=== PATIENT | female | born 1955 | race Caucasian/White ===

== ENCOUNTER → 2018-02-20 | Outpatient (CLI) | payer BC | LOC: OD 09:54 | PROVIDERS: ATTEND Internal Medicine Nephrology | DX: E87.5 Hyperkalemia (principal) | CPT/HCPCS: 36415; 84132 ==

== ENCOUNTER → 2018-05-30 | Outpatient (CLI) | payer BC ==
[2018-05-30 11:55] LABS: ABSOLUTE EOSINOPHILS # (AUTO) 0.1 10^3/uL (0.0-0.6); ABSOLUTE LYMPHOCYTES (AUTO) 1.7 10^3/uL (0.5-4.7); ABSOLUTE MONOCYTES (AUTO) 0.4 10^3/uL (0.1-1.4); BASOPHILS % (AUTO) 0.6 % (0-2); EOSINOPHILS % (AUTO) 1.9 % (0-6); HEMOGLOBIN 10.4 g/dL (12.0-15.5); LYMPHOCYTES % (AUTO) 26.7 % (13-45); MEAN CORPUSCULAR HEMOGLOBIN 32.4 pg (27.0-33.4); MEAN CORPUSCULAR HGB CONC 34.8 g/dL (32.0-36.0); MEAN CORPUSCULAR VOLUME 93 fl (80-97); MONOCYTES % (AUTO) 6.7 % (3-13); PLATELET COUNT 205 10^3/uL (150-450); RED BLOOD COUNT 3.22 10^6/uL (3.72-5.28); RED CELL DISTRIBUTION WIDTH 11.4 % (11.5-14.0); SEGMENTED NEUTROPHILS % (AUTO) 64.1 % (42-78); TOTAL CELLS COUNTED % (AUTO) 100 %; WHITE BLOOD COUNT 6.2 10^3/uL (4.0-10.5)
[2018-05-30 12:02] LABS: APPEARANCE,URINE CLEAR; BILIRUBIN,URINE NEGATIVE (NEGATIVE); COLOR,URINE YELLOW; GLUCOSE, URINE NEGATIVE (NEGATIVE); KETONES,URINE NEGATIVE (NEGATIVE); LEUKOCYTE ESTERASE,URINE MODERATE (NEGATIVE); NITRITE,URINE NEGATIVE (NEGATIVE); PROTEIN,URINE NEGATIVE (NEGATIVE); URINE SPECIFIC GRAVITY 1.008; UROBILINOGEN,URINE NEGATIVE mg/dL (<2.0)
[2018-05-30 12:14] LABS: PHOSPHORUS 4.6 mg/dL (2.5-4.5)
[2018-05-31 11:39] LABS: CREATININE URINE 40.5 mg/dL (Not Estab.); MICROALBUMIN URINE 6.1 ug/mL (Not Estab.)
== END ==
LOC: OD 11:22
PROVIDERS: ATTEND Internal Medicine Nephrology
DX: N18.3 Chronic kidney disease, stage 3 (moderate) (principal); I12.9 Hypertensive chronic kidney disease with stage 1 through stage 4 chronic kidney disease, or unspecified chronic kidney disease; D64.9 Anemia, unspecified
CPT/HCPCS: 36415; 81001; 82040; 82043; 82306; 82570; 82728; 83540; 83550; 83970; 84100; 85025

== ENCOUNTER → 2018-06-08 | Outpatient (CLI) | payer BC ==
[2018-06-08 13:41] LABS: ANION GAP 10 (5-19); BLOOD UREA NITROGEN 23 mg/dL (7-20); CALCIUM 8.2 mg/dL (8.4-10.2); CARBON DIOXIDE 24 mmol/L (22-30); CHLORIDE 104 mmol/L (98-107); GLUCOSE 90 mg/dL (75-110); SODIUM 137.7 mmol/L (137-145)
== END ==
LOC: OD 12:39
PROVIDERS: ATTEND Internal Medicine Nephrology
DX: N18.3 Chronic kidney disease, stage 3 (moderate) (principal); D63.1 Anemia in chronic kidney disease
CPT/HCPCS: 36415; 80048

== ENCOUNTER 2018-06-16 20:38 | Emergency (ER) | payer BC ==
[2018-06-16] MEDS ORDERED: ACETAMINOPHEN 325 MG TABLET PO ONE (21:02)
--- NOTE | 2018-06-16 21:20 | ER Document Report ---
ED General - General Chief Complaint: General Weakness Stated Complaint: WEAKNESS Time Seen by Provider: 06/16/18 21:00 Mode of Arrival: Ambulatory Information source: Patient Notes: 62-year-old female with hypertension, hyperlipidemia, stage III renal disease, recurring cellulitis, chronic knee pain on buprenorphine presents via EMS with complaint of generalized weakness. Patient states that she was shopping when she developed chills and has had weakness since that time. Patient denies fever, headache, nausea, vomiting, chest pain, cough, abdominal pain, nausea, vomiting, diarrhea. is at the bedside and states that he noticed an area of redness on the patient's inner thigh. States that she has had recurring cellulitis. TRAVEL OUTSIDE OF THE [place] IN LAST 30 DAYS: No - HPI Onset: Just prior to arrival Onset/Duration: Gradual Quality of pain: Throbbing - Patient has chronic knee pain Associated symptoms: Chills, Weakness. denies: Body/muscle aches, Chest pain, Nonproductive cough, Productive cough, Diarrhea, Fever, Headache, Nausea, Vomiting, Shortness of breath Exacerbated by: Denies Relieved by: Denies Similar symptoms previously: Yes Recently seen / treated by doctor: No - Related Data Allergies/Adverse Reactions: Iodinated Contrast- Oral and IV Dye [IV Dye, Iodine Containing] Allergy (Unknown, Verified 05/21/14 09:10) breathing problems clarithromycin [From Biaxin] Adverse Reaction (Unknown, Verified 05/21/14 09:10) vaginal itching Past Medical History - General Information source: Patient - Social History Smoking Status: Former Smoker Chew tobacco use (# tins/day): No Frequency of alcohol use: None Drug Abuse: None Lives with: Spouse/Significant other Family History: Reviewed & Not Pertinent Patient has suicidal ideation: No Patient has homicidal ideation: No - Past Medical History Cardiac Medical History: Reports: Hx Hypercholesterolemia, Hx Hypertension Renal/ Medical History: Denies: Hx Peritoneal Dialysis Musculoskeletal Medical History: Reports Hx Arthritis Past Surgical History: Reports: Hx Abdominal Surgery - gastric bypass, Hx Appendectomy, Hx Section - Immunizations Hx Diphtheria, Pertussis, Tetanus Vaccination: Yes Hx Pneumococcal Vaccination: 05/21/14 Review of Systems - Review of Systems Notes: REVIEW OF SYSTEMS: CONSTITUTIONAL : Denies fever, or sweats. Denies recent illness. Denies weight loss, recent hospitalizations. EENT: Denies visual changes, eye pain. Denies sore throat, oral lesions, d ifficulty swallowing. CARDIOVASCULAR: Denies chest pain. Denies palpitations. Denies lower extremity edema. RESPIRATORY: Denies cough. Denies shortness of breath, wheezing. GASTROINTESTINAL: Denies abdominal pain or distention. Denies nausea, vomiting, or diarrhea. Denies blood in vomitus, stools, or per rectum. Denies black, tarry stools. Denies constipation. GENITOURINARY: Denies difficulty urinating, painful urination, frequency, blood in urine, or vaginal discharge. MUSCULOSKELETAL: Denies back or neck pain or stiffness. Denies joint pain or swelling. SKIN: Denies rash, lesions or sores. HEMATOLOGIC : Denies easy bruising or bleeding. LYMPHATIC: Denies swollen glands. NEUROLOGICAL: Denies confusion or altered mental status. Denies loss of consciousness. Denies dizziness or lightheadedness. Denies headache. Denies paralysis. Denies problems difficulty with ambulation, slurred speech. Denies sensory loss, numbness, or tingling. Denies seizures. PSYCHIATRIC: Denies anxiety or stress. Denies depression, suicidal ideation, or homicidal ideation. Denies visual or auditory hallucinations. Physical Exam - Vital signs Vitals: Temp Pulse Resp BP Pulse Ox 102.0 F H 100 22 H 104/50 L 91 L 06/16/18 20:42 06/16/18 20:42 06/16/18 20:42 06/16/18 20:42 06/16/18 20:42 - Notes Notes: PHYSICAL EXAMINATION: GENERAL: Well-appearing, well-nourished and in no acute distress. HEAD: Atraumatic, normocephalic. EYES: Pupils equal round and reactive to light, extraocular movements intact, conjunctiva are normal. ENT: Nares patent, oropharynx clear without exudates. Moist mucous membranes. NECK: Normal range of motion, supple without lymphadenopathy LUNGS: Breath sounds clear to auscultation bilaterally and equal. No wheezes rales or rhonchi. HEART: Regular rate and rhythm without murmurs ABDOMEN: Soft, nontender, nondistended abdomen. No guarding, no rebound. No masses appreciated. Female : deferred Musculoskeletal: Normal range of motion, no pitting or edema. No cyanosis. NEUROLOGICAL: Cranial nerves grossly intact. Normal speech, normal gait. Normal sensory, motor exams PSYCH: Normal mood, normal affect. SKIN: Warm, Dry, normal turgor, no rashes or lesions noted. Course - Re-evaluation Re-evalutation: Laboratory 06/16/18 06/16/18 06/16/18 21:00 21:00 21:00 WBC 15.6 H RBC 3.23 L Hgb 10.4 L Hct 30.2 L MCV 94 MCH 32.3 MCHC 34.5 RDW 11.8 Plt Count 132 L Seg Neutrophils % 88.9 H Lymphocytes % 5.2 L Monocytes % 5.7 Eosinophils % 0.1 Basophils % 0.1 Absolute Neutrophils 13.8 H Absolute Lymphocytes 0.8 Absolute Monocytes 0.9 Absolute Eosinophils 0.0 Absolute Basophils 0.0 PT 16.1 H INR 1.23 VBG pH VBG pCO2 VBG HCO3 VBG Base Excess Sodium 133.4 L Potassium 4.4 Chloride 103 Carbon Dioxide 23 Anion Gap 7 BUN 22 H Creatinine 1.54 H Est GFR ( Amer) 41 L Est GFR (Non-Af Amer) 34 L Glucose 105 Lactic Acid Calcium 8.0 L Total Bilirubin 0.6 Direct Bilirubin 0.2 Neonat Total Bilirubin Not Reportable Neonat Direct Bilirubin Not Reportable Neonat Indirect Bili Not Reportable AST 111 H ALT 64 H Alkaline Phosphatase 98 Troponin I Total Protein 6.6 Albumin 3.2 L Urine Color Urine Appearance Urine pH Ur Specific Butler Urine Protein Urine Glucose (UA) Urine Ketones Urine Blood Urine Nitrite Urine Bilirubin Urine Urobilinogen Ur Leukocyte Esterase Urine WBC (Auto) Urine RBC (Auto) U Hyaline Cast (Auto) Urine Bacteria (Auto) Urine WBC Clumps Squamous Epi Cells Auto Urine Mucus (Auto) Urine Ascorbic Acid Urine Opiates Screen Urine Methadone Screen Ur Barbiturates Screen Ur Phencyclidine Scrn Ur Amphetamines Screen U Benzodiazepines Scrn Urine Cocaine Screen U Marijuana (THC) Screen Influenza A (Rapid) Influenza B (Rapid) 06/16/18 06/16/18 06/16/18 21:00 21:00 21:00 WBC RBC Hgb Hct MCV MCH MCHC RDW Plt Count Seg Neutrophils % Lymphocytes % Monocytes % Eosinophils % Basophils % Absolute Neutrophils Absolute Lymphocytes Absolute Monocytes Absolute Eosinophils Absolute Basophils PT INR VBG pH 7.33 VBG pCO2 46.3 VBG HCO3 23.8 VBG Base Excess -2.6 Sodium Potassium Chloride Carbon Dioxide Anion Gap BUN Creatinine Est GFR ( Amer) Est GFR (Non-Af Amer) Glucose Lactic Acid 1.9 Calcium Total Bilirubin Direct Bilirubin Neonat Total Bilirubin Neonat Direct Bilirubin Neonat Indirect Bili AST ALT Alkaline Phosphatase Troponin I 0.838 Total Protein Albumin Urine Color Urine Appearance Urine pH Ur Specific Butler Urine Protein Urine Glucose (UA) Urine Ketones Urine Blood Urine Nitrite Urine Bilirubin Urine Urobilinogen Ur Leukocyte Esterase Urine WBC (Auto) Urine RBC (Auto) U Hyaline Cast (Auto) Urine Bacteria (Auto) Urine WBC Clumps Squamous Epi Cells Auto Urine Mucus (Auto) Urine Ascorbic Acid Urine Opiates Screen Urine Methadone Screen Ur Barbiturates Screen Ur Phencyclidine Scrn Ur Amphetamines Screen U Benzodiazepines Scrn Urine Cocaine Screen U Marijuana (THC) Screen Influenza A (Rapid) Influenza B (Rapid) 06/16/18 06/16/18 06/16/18 21:51 21:51 21:53 WBC RBC Hgb Hct MCV MCH MCHC RDW Plt Count Seg Neutrophils % Lymphocytes % Monocytes % Eosinophils % Basophils % Absolute Neutrophils Absolute Lymphocytes Absolute Monocytes Absolute Eosinophils Absolute Basophils PT INR VBG pH VBG pCO2 VBG HCO3 VBG Base Excess Sodium Potassium Chloride Carbon Dioxide Anion Gap BUN Creatinine Est GFR ( Amer) Est GFR (Non-Af Amer) Glucose Lactic Acid Calcium Total Bilirubin Direct Bilirubin Neonat Total Bilirubin Neonat Direct Bilirubin Neonat Indirect Bili AST ALT Alkaline Phosphatase Troponin I Total Protein Albumin Urine Color YELLOW Urine Appearance CLOUDY Urine pH 5.0 Ur Specific Butler 1.015 Urine Protein 100 H Urine Glucose (UA) NEGATIVE Urine Ketones NEGATIVE Urine Blood NEGATIVE Urine Nitrite NEGATIVE Urine Bilirubin NEGATIVE Urine Urobilinogen NEGATIVE Ur Leukocyte Esterase MODERATE H Urine WBC (Auto) 30 Urine RBC (Auto) 2 U Hyaline Cast (Auto) 2 Urine Bacteria (Auto) TRACE Urine WBC Clumps OCC Squamous Epi Cells Auto 2 Urine Mucus (Auto) RARE Urine Ascorbic Acid NEGATIVE Urine Opiates Screen UNCONFIRMED POSITIVE Urine Methadone Screen NEGATIVE Ur Barbiturates Screen NEGATIVE Ur Phencyclidine Scrn NEGATIVE Ur Amphetamines Screen NEGATIVE U Benzodiazepines Scrn NEGATIVE Urine Cocaine Screen NEGATIVE U Marijuana (THC) Screen NEGATIVE Influenza A (Rapid) NEGATIVE Influenza B (Rapid) NEGATIVE 06/16/18 23:25 WBC RBC Hgb Hct MCV MCH MCHC RDW Plt Count Seg Neutrophils % Lymphocytes % Monocytes % Eosinophils % Basophils % Absolute Neutrophils Absolute Lymphocytes Absolute Monocytes Absolute Eosinophils Absolute Basophils PT INR VBG pH VBG pCO2 VBG HCO3 VBG Base Excess Sodium Potassium Chloride Carbon Dioxide Anion Gap BUN Creatinine Est GFR ( Amer) Est GFR (Non-Af Amer) Glucose Lactic Acid Calcium Total Bilirubin Direct Bilirubin Neonat Total Bilirubin Neonat Direct Bilirubin Neonat Indirect Bili AST ALT Alkaline Phosphatase Troponin I 1.080 Total Protein Albumin Urine Color Urine Appearance Urine pH Ur Specific Butler Urine Protein Urine Glucose (UA) Urine Ketones Urine Blood Urine Nitrite Urine Bilirubin Urine Urobilinogen Ur Leukocyte Esterase Urine WBC (Auto) Urine RBC (Auto) U Hyaline Cast (Auto) Urine Bacteria (Auto) Urine WBC Clumps Squamous Epi Cells Auto Urine Mucus (Auto) Urine Ascorbic Acid Urine Opiates Screen Urine Methadone Screen Ur Barbiturates Screen Ur Phencyclidine Scrn Ur Amphetamines Screen U Benzodiazepines Scrn Urine Cocaine Screen U Marijuana (THC) Screen Influenza A (Rapid) Influenza B (Rapid) Chest X-Ray 06/16/18 21:02 IMPRESSION: Mild pulmonary edema. No pleural effusions. Chest CT 06/16/18 23:04 IMPRESSION: 1. Small areas of groundglass opacity in the right lung which may represent infection. 2. Age-indeterminate fracture of the right clavicle. 2. No acute intra-abdominal or pelvic pathology. Abdomen/Pelvis CT 06/16/18 23:22 IMPRESSION: 1. Small areas of groundglass opacity in the right lung which may represent infection. 2. Age-indeterminate fracture of the right clavicle. 2. No acute intra-abdominal or pelvic pathology. Temp Pulse Resp BP Pulse Ox 100.2 F 100 16 96/53 L 99 06/16/18 23:49 06/16/18 20:53 06/17/18 00:26 06/17/18 00:26 06/17/18 00:26 62-year-old female with hypertension, hyperlipidemia, stage III renal disease, recurring cellulitis, chronic knee pain on buprenorphine presents via EMS with complaint of generalized weakness. Patient states that she was shopping when she developed chills and has had weakness since that time. Upon arrival vitals were reviewed and patient is febrile, tachycardic and hypotensive. She is alert, awake and her only complaint is generalized weakness. She denies any c hest pain, nausea, vomiting, recent illness. Patient states that she did receive a flu shot. Patient has a normal physical exam except for some mild erythema to her lower extremities bilaterally which the family reports is chronic for her. Sepsis workup initiated. Patient found to have a leukocytosis of 15. CT of the abdomen and pelvis significant for right sided pneumonia. Urinalysis consistent with urinary tract infection. Fluid resuscitation initiated and patient did have mild improvement but continued to have a map less than 65. Norepinephrine initiated. Patient did receive vancomycin, ceftriaxone. Initial lactate within normal limits. Initial troponin was 0.083. Repeat troponin 1.08. Weight-based Lovenox given. Dr. Cai contacted for admission. 06/16/18 23:21 CT of the abdomen and pelvis was requested by Dr. Cai. Patient does have an iodine allergy and will not consent to IV contrast even with premedication with Benadryl, Solu-Medrol and Pepcid. So a noncontrast CT will be obtained. 06/16/18 23:23 06/17/18 00:29 Transfer to [facility] initiated. 06/17/18 00:31 [facility] contacted for transfer. 06/17/18 00:42 06/17/18 00:43 06/17/18 01:[address] Patient [address] by Dr. Lopes from [facility] but I was informed that the patient would not likely get a bed for almost [address] Cortez from [facility] who has accepted the patient to the MICU. The family does prefer [place] since the patient's director quality assurance and primary care physician are there. Transfer center checking weather. Family informed of change. 06/17/18 01:12 06/17/18 01:12 - Vital Signs Vital signs: Temp Pulse Resp BP Pulse Ox 100.2 F 100 16 96/53 L 99 06/16/18 23:49 06/16/18 20:53 06/17/18 00:45 06/17/18 00:45 06/17/18 00:45 - Laboratory Result Diagrams: 06/16/18 21:00 06/16/18 21:00 Laboratory results interpreted by me: 06/16/18 06/16/18 06/16/18 21:00 21:00 21:00 WBC 15.6 H RBC 3.23 L Hgb 10.4 L Hct 30.2 L Plt Count 132 L Seg Neutrophils % 88.9 H Lymphocytes % 5.2 L Absolute Neutrophils 13.8 H PT 16.1 H Sodium 133.4 L BUN 22 H Creatinine 1.54 H Est GFR ( Amer) 41 L Est GFR (Non-Af Amer) 34 L Calcium 8.0 L AST 111 H ALT 64 H Albumin 3.2 L Urine Protein Ur Leukocyte Esterase 06/16/18 21:51 WBC RBC Hgb Hct Plt Count Seg Neutrophils % Lymphocytes % Absolute Neutrophils PT Sodium BUN Creatinine Est GFR ( Amer) Est GFR (Non-Af Amer) Calcium AST ALT Albumin Urine Protein 100 H Ur Leukocyte Esterase MODERATE H - Diagnostic Test Radiology reviewed: Image reviewed, Reports reviewed - EKG Interpretation by Me EKG shows normal: Sinus rhythm Rate: Normal Rhythm: NSR When compared to previous EKG there are: No significant change Critical Care Note - Critical Care Note Total time excluding time spent on procedures (mins): 45 - Minutes of critical care time spent in direct contact evaluating and reevaluating the patient, treating symptoms, reviewing labs and studies and speaking with family and consultants excluding any procedures Discharge - Discharge Clinical Impression: CKD (chronic kidney disease), stage III Pneumonia Qualifiers: Pneumonia type: due to unspecified organism Laterality: right Lung location: unspecified part of lung Qualified Code(s): J18.9 - Pneumonia, unspecified organism Fever Qualifiers: Fever type: unspecified Qualified Code(s): R50.9 - Fever, unspecified Hypotension Qualifiers: Hypotension type: unspecified hypotension type Qualified Code(s): I95.9 - Hypo tension, unspecified Urinary tract infection Qualifiers: Urinary tract infection type: site unspecified Hematuria presence: without hematuria Qualified Code(s): N39.0 - Urinary tract infection, site not specified Sepsis Qualifiers: Sepsis type: sepsis due to unspecified organism Qualified Code(s): A41.9 - Sepsis, unspecified organism Condition: Fair Disposition: [facility] Referrals: JIMMY WADLEN MD [Primary Care Provider] - Follow up as needed
[2018-06-16] MEDS ORDERED: VANCOMYCIN HCL INJ 1000 MG VIAL IV ONE (21:21)
[2018-06-16 21:31] LABS: ABSOLUTE LYMPHOCYTES (AUTO) 0.8 10^3/uL (0.5-4.7); ABSOLUTE MONOCYTES (AUTO) 0.9 10^3/uL (0.1-1.4); ABSOLUTE NEUT (AUTO) 13.8 10^3/uL (1.7-8.2); BASOPHILS % (AUTO) 0.1 % (0-2); EOSINOPHILS % (AUTO) 0.1 % (0-6); HEMATOCRIT 30.2 % (36.0-47.0); HEMOGLOBIN 10.4 g/dL (12.0-15.5); LYMPHOCYTES % (AUTO) 5.2 % (13-45); MEAN CORPUSCULAR HEMOGLOBIN 32.3 pg (27.0-33.4); MEAN CORPUSCULAR HGB CONC 34.5 g/dL (32.0-36.0); MEAN CORPUSCULAR VOLUME 94 fl (80-97); MONOCYTES % (AUTO) 5.7 % (3-13); PLATELET COUNT 132 10^3/uL (150-450); RED BLOOD COUNT 3.23 10^6/uL (3.72-5.28); RED CELL DISTRIBUTION WIDTH 11.8 % (11.5-14.0); SEGMENTED NEUTROPHILS % (AUTO) 88.9 % (42-78); TOTAL CELLS COUNTED % (AUTO) 100 %; VENOUS BLOOD BASE EXCESS -2.6 mmol/L; VENOUS BLOOD HCO3 23.8 mmol/L (20-32); VENOUS BLOOD PCO2 46.3 mmHg (35-63); VENOUS BLOOD PH 7.33 (7.30-7.42); WHITE BLOOD COUNT 15.6 10^3/uL (4.0-10.5)
[2018-06-16 21:42] LABS: INTERNATIONAL RATION (INR) 1.23; PROTHROMBIN TIME 16.1 SEC (11.4-15.4)
--- NOTE | 2018-06-16 21:46 | RADIOLOGY REPORT (SQ) ---
XR CHEST 2 VIEWS HISTORY: Fever. Cough. COMPARISON: 05/20/2014 FINDINGS: Query cardiomegaly with mild pulmonary vascular congestion. The lungs are clear. No pleural effusion or pneumothorax is identified. IMPRESSION: Mild pulmonary edema. No pleural effusions.
[2018-06-16 21:49] LABS: ALANINE AMINOTRANSFERASE 64 U/L (9-52); ALBUMIN 3.2 g/dL (3.5-5.0); ALKALINE PHOSPHATASE 98 U/L (38-126); ANION GAP 7 (5-19); ASPARTATE AMINO TRANSFERASE 111 U/L (14-36); BILIRUBIN,DIRECT 0.2 mg/dL (0.0-0.4); BILIRUBIN,TOTAL 0.6 mg/dL (0.2-1.3); BLOOD UREA NITROGEN 22 mg/dL (7-20); CARBON DIOXIDE 23 mmol/L (22-30); CHLORIDE 103 mmol/L (98-107); GLUCOSE 105 mg/dL (75-110); POTASSIUM 4.4 mmol/L (3.6-5.0); SODIUM 133.4 mmol/L (137-145); TOTAL PROTEIN 6.6 g/dL (6.3-8.2)
[2018-06-16 22:20] LABS: APPEARANCE,URINE CLOUDY; BILIRUBIN,URINE NEGATIVE (NEGATIVE); GLUCOSE, URINE NEGATIVE (NEGATIVE); KETONES,URINE NEGATIVE (NEGATIVE); LEUKOCYTE ESTERASE,URINE MODERATE (NEGATIVE); NITRITE,URINE NEGATIVE (NEGATIVE); PROTEIN,URINE 100 mg/dL (NEGATIVE); URINE SPECIFIC GRAVITY 1.015; UROBILINOGEN,URINE NEGATIVE mg/dL (<2.0)
[2018-06-16 22:25] LABS: COLOR,URINE YELLOW
[2018-06-16 22:32] LABS: A TYPE INFLUENZA AG NEGATIVE (NEGATIVE); B INFLUENZA AG NEGATIVE (NEGATIVE)
[2018-06-16 22:34] LABS: URINE AMPHETAMINES SCREEN NEGATIVE; URINE BARBITURATES SCREEN NEGATIVE; URINE BENZODIAZEPINES SCREEN NEGATIVE; URINE COCAINE SCREEN NEGATIVE; URINE MARIJUANA (THC) SCREEN NEGATIVE; URINE METHADONE SCREEN NEGATIVE; URINE PHENCYCLIDINE SCREEN NEGATIVE
[2018-06-16] MEDS ORDERED: NORMAL SALINE 1000 ML 1,000 ML IV PRN (22:43)
[2018-06-16] MEDS ORDERED: CEFTRIAXONE 1 GM/D5W RTU 1 GM/50 ML RTUPB IV ONE (23:00)
--- NOTE | 2018-06-16 23:02 | EKG REPORT ---
SEVERITY:- BORDERLINE ECG - SINUS RHYTHM BORDERLINE LEFT AXIS DEVIATION BORDERLINE PROLONGED QT INTERVAL : Confirmed by: Loreto Cummins MD 16-Jun-2018 23:01:45
[2018-06-16] MEDS ORDERED: RINGERS SOLUTION,LACTATED 1,000 ML IV PRN (23:04)
[2018-06-16] MEDS ORDERED: ASPIRIN 81 MG TABLET, CHEWABLE PO ONE (23:07)
[2018-06-16] MEDS ORDERED: DEXTROSE 5%-WATER 250 ML with NOREPINEPHRINE BITARTRATE 4 MG IV PRN ×2 (23:16)
[2018-06-16] MEDS ORDERED: FAMOTIDINE INJ/PF 20 MG/2 ML SDV IV ONE (23:19)
[2018-06-16] MEDS ORDERED: DIPHENHYDRAMINE HCL 50 MG/ML VIAL IV ONE (23:19)
[2018-06-16] MEDS ORDERED: METHYLPREDNISOLONE INJ 125 MG/2 ML SDV IV ONE (23:19)
[2018-06-16] MEDS ORDERED: NOREPINEPHRINE BITARTRATE INJ/PF 4 MG/4 ML SDV IV ONE (23:37)
--- NOTE | 2018-06-17 00:01 | RADIOLOGY REPORT (SQ) ---
CT OF THE CHEST, ABDOMEN, AND PELVIS HISTORY: Pain. COMPARISON: None. TECHNIQUE: CT scan of the chest, abdomen, and pelvis without IV contrast. This exam was performed according to our departmental dose-optimization program, which includes automated exposure control, adjustment of the mA and/or kV according to patient size and/or use of iterative reconstruction technique. FINDINGS: The thyroid gland is unremarkable. No mediastinal, hilar, or axillary adenopathy is seen. The heart size is normal. No pericardial effusion is seen. There is no thoracic aortic aneurysm or dissection. There is scattered areas of groundglass opacity in the right upper and lower lobes. A 1.2 cm nodule seen at the right lung base. The liver, spleen, pancreas, and adrenal glands are unremarkable. There has been a prior cholecystectomy. The kidneys are atrophic. The pelvic organs are unremarkable. Status post gastric surgery. No small bowel obstruction. The appendix is not seen. An IVC filter is present. Prior fixation of the proximal left femur. There is a fracture deformity of the proximal right clavicle. IMPRESSION: 1. Small areas of groundglass opacity in the right lung which may represent infection. 2. Age-indeterminate fracture of the right clavicle. 2. No acute intra-abdominal or pelvic pathology.
[2018-06-17] MEDS ORDERED: ENOXAPARIN SODIUM INJ 150 MG/1 ML DISP.SYRIN SUBCUT SCH ×2 (00:30→10:00)
[2018-06-17] MEDS ORDERED: ENOXAPARIN SODIUM INJ 150 MG/1 ML DISP.SYRIN SUBCUT ONE (00:45)
[2018-06-17] MEDS ORDERED: NORMAL SALINE 1000 ML 1,000 ML IV ONE (00:52)
[2018-06-17] MEDS ORDERED: ACETAMINOPHEN 325 MG TABLET PO SCH (01:00)
[2018-06-17] MEDS ORDERED: FENTANYL CITRATE INJ/PF 100 MCG/2 ML AMPUL IV ONE (02:31)
[2018-06-17 03:07] VITALS: BP 110/51
[2018-06-17] MEDS ORDERED: CEFTRIAXONE 1 GM/D5W RTU 1 GM/50 ML RTUPB IV ONE (09:00)
[2018-06-17] MEDS ORDERED: VANCOMYCIN HCL INJ 1000 MG VIAL IV SCH (11:00)
== END 2018-06-17 03:55 | disposition short-term general hospital (02) ==
LOC: ER 20:38
DX: A41.9 Sepsis, unspecified organism (principal); J18.9 Pneumonia, unspecified organism; N39.0 Urinary tract infection, site not specified; I95.9 Hypotension, unspecified; R50.9 Fever, unspecified; I12.9 Hypertensive chronic kidney disease with stage 1 through stage 4 chronic kidney disease, or unspecified chronic kidney disease; N18.3 Chronic kidney disease, stage 3 (moderate); R51 Headache; L53.9 Erythematous condition, unspecified; R53.1 Weakness; M25.569 Pain in unspecified knee; G89.29 Other chronic pain; Z79.891 Long term (current) use of opiate analgesic; Z91.041 Radiographic dye allergy status; Z98.84 Bariatric surgery status; Z87.891 Personal history of nicotine dependence
CPT/HCPCS: 93005; 99291; 96372; 96361; 96365; 96366; 96367; 96368; 36415; 87040; 87086; 85025; 85610; 80053; 81001; 84484; 80307; 82803; 83605; 87804; 71046; 71250; 74176; 93010; J3490 ×2; J7030; J3370; J0696

== ENCOUNTER → 2018-11-02 | Outpatient (CLI) | payer MEDICARE, OTHER ==
[2018-11-02 14:20] LABS: ABSOLUTE EOSINOPHILS # (AUTO) 0.1 10^3/uL (0.0-0.6); ABSOLUTE LYMPHOCYTES (AUTO) 1.3 10^3/uL (0.5-4.7); ABSOLUTE MONOCYTES (AUTO) 0.4 10^3/uL (0.1-1.4); ABSOLUTE NEUT (AUTO) 3.5 10^3/uL (1.7-8.2); BASOPHILS % (AUTO) 0.7 % (0-2); EOSINOPHILS % (AUTO) 1.8 % (0-6); HEMATOCRIT 30.2 % (36.0-47.0); HEMOGLOBIN 10.3 g/dL (12.0-15.5); LYMPHOCYTES % (AUTO) 24.5 % (13-45); MEAN CORPUSCULAR HEMOGLOBIN 31.9 pg (27.0-33.4); MEAN CORPUSCULAR VOLUME 94 fl (80-97); MONOCYTES % (AUTO) 7.9 % (3-13); PLATELET COUNT 222 10^3/uL (150-450); RED BLOOD COUNT 3.22 10^6/uL (3.72-5.28); RED CELL DISTRIBUTION WIDTH 11.7 % (11.5-14.0); SEGMENTED NEUTROPHILS % (AUTO) 65.1 % (42-78); TOTAL CELLS COUNTED % (AUTO) 100 %; WHITE BLOOD COUNT 5.4 10^3/uL (4.0-10.5)
[2018-11-02 14:28] LABS: ANION GAP 10 (5-19); BLOOD UREA NITROGEN 16 mg/dL (7-20); CALCIUM 8.7 mg/dL (8.4-10.2); CARBON DIOXIDE 26 mmol/L (22-30); CHLORIDE 103 mmol/L (98-107); GLUCOSE 95 mg/dL (75-110); SODIUM 139.1 mmol/L (137-145)
== END ==
LOC: OD 13:31
PROVIDERS: ATTEND Internal Medicine Nephrology
DX: I12.9 Hypertensive chronic kidney disease with stage 1 through stage 4 chronic kidney disease, or unspecified chronic kidney disease (principal); N18.3 Chronic kidney disease, stage 3 (moderate); D64.9 Anemia, unspecified
CPT/HCPCS: 36415; 80048; 83970; 85025

== ENCOUNTER → 2019-05-09 | Outpatient (CLI) | payer MEDICARE, OTHER ==
[2019-05-09 10:47] LABS: ABSOLUTE EOSINOPHILS # (AUTO) 0.1 10^3/uL (0.0-0.6); ABSOLUTE LYMPHOCYTES (AUTO) 0.8 10^3/uL (0.5-4.7); ABSOLUTE MONOCYTES (AUTO) 0.5 10^3/uL (0.1-1.4); ABSOLUTE NEUT (AUTO) 4.5 10^3/uL (1.7-8.2); BASOPHILS % (AUTO) 0.5 % (0-2); EOSINOPHILS % (AUTO) 2.4 % (0-6); HEMATOCRIT 31.8 % (36.0-47.0); HEMOGLOBIN 10.9 g/dL (12.0-15.5); LYMPHOCYTES % (AUTO) 13.3 % (13-45); MEAN CORPUSCULAR HEMOGLOBIN 32.7 pg (27.0-33.4); MEAN CORPUSCULAR HGB CONC 34.4 g/dL (32.0-36.0); MEAN CORPUSCULAR VOLUME 95 fl (80-97); MONOCYTES % (AUTO) 8.7 % (3-13); PLATELET COUNT 185 10^3/uL (150-450); RED BLOOD COUNT 3.35 10^6/uL (3.72-5.28); RED CELL DISTRIBUTION WIDTH 11.9 % (11.5-14.0); SEGMENTED NEUTROPHILS % (AUTO) 75.1 % (42-78); TOTAL CELLS COUNTED % (AUTO) 100 %
[2019-05-09 11:02] LABS: APPEARANCE,URINE CLEAR; BILIRUBIN,URINE NEGATIVE (NEGATIVE); COLOR,URINE YELLOW; GLUCOSE, URINE NEGATIVE (NEGATIVE); KETONES,URINE NEGATIVE (NEGATIVE); LEUKOCYTE ESTERASE,URINE TRACE (NEGATIVE); NITRITE,URINE NEGATIVE (NEGATIVE); PROTEIN,URINE NEGATIVE (NEGATIVE); URINE SPECIFIC GRAVITY 1.012; UROBILINOGEN,URINE NEGATIVE mg/dL (<2.0)
[2019-05-09 12:41] LABS: ALBUMIN 4.2 g/dL (3.5-5.0); CHLORIDE 102 mmol/L (98-107); IRON(TIBC) 74.3 ug/dL (37-170); POTASSIUM 4.3 mmol/L (3.6-5.0)
[2019-05-09 12:44] LABS: ANION GAP 13 (5-19); BLOOD UREA NITROGEN 17 mg/dL (7-20); CALCIUM 9.1 mg/dL (8.4-10.2); CARBON DIOXIDE 24 mmol/L (22-30); GLUCOSE 85 mg/dL (75-110); PHOSPHORUS 4.4 mg/dL (2.5-4.5)
[2019-05-10 10:36] LABS: CREATININE URINE 91.6 mg/dL (Not Estab.); MICROALBUMIN URINE 38.5 ug/mL (Not Estab.)
== END ==
LOC: OD 10:10
PROVIDERS: ATTEND Internal Medicine Nephrology
DX: I12.9 Hypertensive chronic kidney disease with stage 1 through stage 4 chronic kidney disease, or unspecified chronic kidney disease (principal); N18.3 Chronic kidney disease, stage 3 (moderate); D63.1 Anemia in chronic kidney disease; N25.81 Secondary hyperparathyroidism of renal origin
CPT/HCPCS: 36415; 80069; 81001; 82043; 82306; 82570; 82728; 83540; 83550; 83970; 85025

== ENCOUNTER 2020-01-03 18:11 | Inpatient (IN) | payer MEDICARE, OTHER ==
--- NOTE | 2020-01-03 22:31 | ER Document Report ---
ED General - General Chief Complaint: Weakness Stated Complaint: Weakness, chills Time Seen by Provider: 01/03/20 22:18 Notes: Patient is a 64-year-old female that comes to the emergency department for chief complaint of generalized weakness and chills that started earlier today. She states she feels so weak she can barely walk. She normally ambulates with a walker at home. She denies dizziness, headache, cough, shortness of breath, chest pain, nausea, vomiting, diarrhea, sore throat, abdominal pain. She denies any obvious sick contacts. Past medical history of chronic pain on pain management with fentanyl patches, sepsis from cellulitis, obesity, GERD. She denies any other medical history including smoking, asthma, CAD. TRAVEL OUTSIDE OF THE [place] IN LAST 30 DAYS: No - Related Data Allergies/Adverse Reactions: Iodinated Contrast Media [IV Dye, Iodine Containing] Allergy (Unknown, Verified 01/03/20 23:08) breathing problems clarithromycin [From Biaxin] Adverse Reaction (Unknown, Verified 01/03/20 23:08) vaginal itching Past Medical History - General Information source: Patient - Social History Smoking Status: Never Smoker Frequency of alcohol use: None Drug Abuse: None Lives with: Family Family History: Reviewed & Not Pertinent - Past Medical History Cardiac Medical History: Reports: Hx Hypercholesterolemia, Hx Hypertension Renal/ Medical History: Denies: Hx Peritoneal Dialysis Musculoskeletal Medical History: Reports Hx Arthritis Past Surgical History: Reports: Hx Abdominal Surgery - gastric bypass, Hx Appendectomy, Hx Section - Immunizations Hx Diphtheria, Pertussis, Tetanus Vaccination: Yes Hx Pneumococcal Vaccination: 05/21/14 Review of Systems - Review of Systems Constitutional: No symptoms reported EENT: No symptoms reported Cardiovascular: No symptoms reported Respiratory: No symptoms reported Gastrointestinal: No symptoms reported Genitourinary: No symptoms reported Female Genitourinary: No symptoms reported Musculoskeletal: No symptoms reported Skin: No symptoms reported Hematologic/Lymphatic: No symptoms reported Neurological/Psychological: No symptoms reported Physical Exam - Vital signs Vitals: Temp Resp BP Pulse Ox 99.9 F 16 150/74 H 98 01/03/20 22:02 01/03/20 22:02 01/03/20 22:02 01/03/20 22:02 - Notes Notes: GENERAL: Alert and interactive but quiet and slightly ill-appearing. Morbidly obese HEAD: Normocephalic, atraumatic. EYES: Pupils equal, round, and reactive to light. Extraocular movements intact. ENT: Oral mucosa moist, tongue midline. Oropharynx unremarkable. Airway patent. NECK: Full range of motion. Supple. Trachea midline. No lymphadenopathy. LUNGS: Clear to auscultation bilaterally, no wheezes, rales, or rhonchi. No respiratory distress. Non-tender chest wall. HEART: Regular rate and rhythm. No murmur ABDOMEN: Soft, non-tender. Non-distended. EXTREMITIES: There is marked erythema, tenderness, and warmth to the left distal thigh just behind the knee and medially extending up towards the mid and proximal thigh. No induration or fluctuance, no wound, no purulent drainage. Extremities unremarkable otherwise, normal distal neurovascular exam. BACK: no cervical, thoracic, lumbar midline tenderness. No saddle anesthesia, normal distal neurovascular exam. NEUROLOGICAL: Alert and oriented x3. Normal speech. Cranial nerves II through XII grossly intact. Strength 5/5 in all extremities. PSYCH: Normal affect, normal mood. SKIN: Flushed but no rash or lesion is noted Course - Re-evaluation Re-evalutation: Patient is slightly listless and ill-appearing, she has what appears to be significant cellulitis in the left distal thigh, she is very morbidly obese and reports difficulty ambulating at baseline, however in her current states she is weak and is unable to ambulate at all even with assistance. Patient will be started on antibiotics, she will require admission most likely for cellulitis, additional tests will be performed to rule out other infectious process. Chest x-ray unremarkable, urinalysis unremarkable, CBC shows leukocytosis at 23.8 with left shift. Chemistry with creatinine of 1.4, remaining unremarkable. Lactic acid is not elevated. Blood cultures are pending. Troponin indeterminate. Discussed with patient, will discuss with hospitalist for admission for cellulitis, inability to ambulate, leukocytosis. Patient has had sepsis from cellulitis in the same leg in the past. Patient is not tachycardic or hypotensive on my evaluations. She does not have a fever. Patient states understanding and agreement. Discussed with Dr. Carolina, hospitalist, patient excepted to medical floor full admission. - Vital Signs Vital signs: Temp Pulse Resp BP Pulse Ox 100.5 F H 99 18 115/46 L 98 01/04/20 04:08 01/04/20 04:08 01/04/20 04:08 01/04/20 04:08 01/04/20 04:08 - Laboratory Result Diagrams: 01/03/20 23:42 01/03/20 23:42 Laboratory results interpreted by me: 01/03/20 01/03/20 01/04/20 23:42 23:42 00:02 WBC 24.8 H RBC 3.40 L Hgb 10.9 L Hct 31.9 L Seg Neuts % (Manual) 93 H Band Neutrophils % 1 L Lymphocytes % (Manual) 2 L Abs Neuts (Manual) 23.3 H Sodium 131.5 L Creatinine 1.43 H Est GFR ( Amer) 44 L Est GFR (MDRD) Non-Af 37 L Glucose 124 H AST 88 H ALT 48 H Total Protein 8.4 H Urine Protein 100 H Urine Blood SMALL H Discharge - Discharge Clinical Impression: Chills, Unable to ambulate, Morbid obesity Cellulitis of leg Qualifiers: Laterality: left Qualified Code(s): L03.116 - Cellulitis of left lower limb Leukocytosis Qualifiers: Leukocytosis type: bandemia Qualified Code(s): D72.825 - Bandemia Condition: Stable Disposition: ADMITTED INPATIENT Admitting Provider: Caity (Hospitalist) Unit Admitted: Medical Floor
[2020-01-03 23:57] LABS: VENOUS BLOOD BASE EXCESS -1.3 mmol/L; VENOUS BLOOD HCO3 24.8 mmol/L (20-32); VENOUS BLOOD PCO2 46.9 mmHg (35-63); VENOUS BLOOD PH 7.34 (7.30-7.42)
[2020-01-04] LABS: HEMATOCRIT 31.9 % (36.0-47.0); HEMOGLOBIN 10.9 g/dL (12.0-15.5); MEAN CORPUSCULAR HGB CONC 34.1 g/dL (32.0-36.0); MEAN CORPUSCULAR VOLUME 94 fl (80-97); PLATELET COUNT 197 10^3/uL (150-450); RED CELL DISTRIBUTION WIDTH 12.2 % (11.5-14.0); WHITE BLOOD COUNT 24.8 10^3/uL (4.0-10.5)
[2020-01-04] MEDS ORDERED: VANCOMYCIN HCL INJ 1000 MG VIAL IV ONE (00:14)
[2020-01-04] MEDS ORDERED: CEFTRIAXONE 1 GM/D5W RTU 1 GM/50 ML RTUPB IV ONE (00:15)
[2020-01-04 00:19] LABS: ALBUMIN 4.2 g/dL (3.5-5.0); ALKALINE PHOSPHATASE 100 U/L (38-126); ANION GAP 7 (5-19); ASPARTATE AMINO TRANSFERASE 88 U/L (14-36); BILIRUBIN,DIRECT 0.1 mg/dL (0.0-0.4); BILIRUBIN,TOTAL 0.7 mg/dL (0.2-1.3); BLOOD UREA NITROGEN 18 mg/dL (7-20); CALCIUM 8.6 mg/dL (8.4-10.2); CARBON DIOXIDE 25 mmol/L (22-30); CHLORIDE 100 mmol/L (98-107); GLUCOSE 124 mg/dL (75-110); POTASSIUM 4.8 mmol/L (3.6-5.0); TOTAL PROTEIN 8.4 g/dL (6.3-8.2)
[2020-01-04 00:22] LABS: ABSOLUTE LYMPHOCYTES# (MANUAL) 0.5 10^3/uL (0.5-4.7); BAND NEUTROPHILS % (MANUAL) 1 % (3-5); BASOPHILS % (MANUAL) 0 % (0-2); EOSINOPHILS % (MANUAL) 0 % (0-6); LYMPHOCYTES % (MANUAL) 2 % (13-45); MONOCYTES % (MANUAL) 4 % (3-13); PLATELET COMMENT ADEQUATE; RBC MORPHOLOGY COMMENT NORMO-CYTIC/CHROMIC; SEGMENTED NEUTROPHILS % (MAN) 93 % (42-78); TOTAL CELLS COUNTED 100
--- NOTE | 2020-01-04 01:15 | EKG REPORT ---
SEVERITY:- OTHERWISE NORMAL ECG - SINUS RHYTHM BORDERLINE LEFT AXIS DEVIATION : Confirmed by: Martha Schreiber 04-Jan-2020 01:14:43
[2020-01-04 01:18] LABS: APPEARANCE,URINE CLEAR; BILIRUBIN,URINE NEGATIVE (NEGATIVE); COLOR,URINE YELLOW; GLUCOSE, URINE NEGATIVE (NEGATIVE); KETONES,URINE NEGATIVE (NEGATIVE); PROTEIN,URINE 100 mg/dL (NEGATIVE); URINE SPECIFIC GRAVITY 1.017; UROBILINOGEN,URINE NEGATIVE mg/dL (<2.0)
--- NOTE | 2020-01-04 01:25 | RADIOLOGY REPORT (SQ) ---
EXAM DESCRIPTION: XR CHEST 1 VIEW COMPLETED DATE/TME: 01/03/2020 22:29 CLINICAL HISTORY: 64 years, Female, weakness, chills COMPARISON: 05/20/2014 chest NUMBER OF VIEWS: 1 TECHNIQUE: Portable chest LIMITATIONS: None. FINDINGS: The heart size is normal. Lungs are clear. No pneumothorax IMPRESSION: No acute cardiopulmonary process copyright 2011 [employer]- All Rights Reserved
[2020-01-04] MEDS ORDERED: MAGNESIUM HYDROXIDE SUSP 30 ML UDCUP PO PRN (04:08)
[2020-01-04] MEDS ORDERED: MAG HYDROX/AL HYDROX/SIMETH SUSP 30 ML UDCUP PO PRN (04:08)
[2020-01-04] MEDS ORDERED: PROMETHAZINE HCL INJ 25 MG/1 ML VIAL IV PRN (04:08)
[2020-01-04] MEDS ORDERED: LORAZEPAM INJ 2 MG/1 ML VIAL IV PRN (04:13)
[2020-01-04] MEDS ORDERED: GUAIFENESIN SYRP 200 MG/10 ML UDC PO PRN (04:13)
[2020-01-04] MEDS: HEPARIN SOD (PORCINE) 5,000 UNIT/ML 1 ML VIAL SUBCUT SCH ×2 (05:40→13:13)
[2020-01-04] MEDS: PANTOPRAZOLE SODIUM 40 MG TABLET.DR PO SCH (05:41)
[2020-01-04] MEDS: MORPHINE SULFATE 10 MG/ML INJ IV PRN ×2 (05:42→22:20)
--- NOTE | 2020-01-04 06:42 | PDOC H&P ---
History of Present Illness Admission Date/PCP: 01/04/20 03:40 JIMMY WALDEN MD Patient complains of: Left lower extremity pain History of Present Illness: SANDHYA ALVARADO is a 64 year old female who presents the emergency room with a 2-day history of left lower extremity pain. She admits progressively worsening constant, nonradiating, aching and throbbing pain in her left lower extremity over the last 2 days becoming severe on 01/03/2020 such that she was unable to bear weight on the left foot and's was unable to walk even using her walker. Her pain has been accompanied by subjective fever and chills and associated with generalized weakness and malaise. She denies other associated or accompanying signs and symptoms. She admits a prior similar episode with cellulitis several years ago. She has not identified any additional aggravating or ameliorating factors for her left lower leg pain. In the emergency room she was found to have an obvious cellulitis on examination of the left lower extremity and a white blood count of 24,800. She was subsequently admitted to the hospital for further evaluation treatment. Past Medical History Cardiac Medical History: Reports: Hyperlipidema, Hypertension Denies: Coronary Artery Disease, DVT, Pulmonary Embolism Pulmonary Medical History: Denies: Asthma, Chronic Obstructive Pulmonary Disease (COPD) EENT Medical History: Denies: Cataracts, Ears - Hearing aids Neurological Medical History: Denies: Hemorrhagic CVA, Ischemic CVA, Seizures Endocrine Medical History: Reports: Obesity Denies: Diabetes Mellitus Type 1, Diabetes Mellitus Type 2, Hyperthyroidism, Hypothyroidism Renal/ Medical History: Reports: Chronic Kidney Disease Denies: Nephrolithiasis Malignancy Medical History: Reports: None GI Medical History: Reports: Gastroesophageal Reflux Disease Denies: Cirrhosis, Crohn's Disease, Hepatitis, Peptic Ulcer Disease, Ulcerative Colitis Musculoskeltal Medical History: Reports: Arthritis Denies: Fibromyalgia Skin Medical History: Denies: Eczema, Psoriasis Psychiatric Medical History: Denies: Alcohol Dependency, Substance Abuse, Tobacco Dependency Traumatic Medical History: Reports: None Hematology: Reports: Anemia Denies: Bleeding Tendencies Infectious Medical History: Reports: None Past Surgical History Past Surgical History: Reports: Appendectomy, Section, Gastric Bypass Surgery Social History Information Source: Patient Lives with: Spouse/Significant other Smoking Status: Never Smoker Electronic Cigarette use?: No Frequency of Alcohol Use: None Hx Recreational Drug Use: No Drugs: None Hx Prescription Drug Abuse: No - Advance Directive Resuscitation Status: Full Code Surrogate healthcare decision maker:: Navid Alvarado Family History Family History: CVA, DM Parental Family History Reviewed: Yes Children Family History Reviewed: No Sibling(s) Family History Reviewed.: No Medication/Allergy Home Medications: Paroxetine HCl [Paxil] 30 mg PO DAILY 08/05/12 Simvastatin [Zocor 20 mg Tablet] 20 mg PO QHS 08/05/12 Buprenorphine [Butrans] 1 each TD Q7D 01/04/20 Carvedilol [Coreg 12.5 mg Tablet] 12.5 mg PO Q12 01/04/20 Losartan Potassium 100 mg PO DAILY 01/04/20 Oxycodone HCl/Acetaminophen [Percocet 7.5-325 mg Tablet] 1 each PO QID 01/04/20 Allergies/Adverse Reactions: Iodinated Contrast Media [IV Dye, Iodine Containing] Allergy (Unknown, Verified 01/03/20 23:08) breathing problems clarithromycin [From Biaxin] Adverse Reaction (Unknown, Verified 01/03/20 23:08) vaginal itching Review of Systems Constitutional: PRESENT: as per HPI, chills, fever(s), weakness Eyes: ABSENT: visual disturbances, other - Eye pain Ears: ABSENT: hearing changes, other - Ear pain Nose, Mouth, and Throat: ABSENT: headache(s), sore throat Cardiovascular: ABSENT: chest pain, palpitations Respiratory: ABSENT: cough, dyspnea Gastrointestinal: ABSENT: abdominal pain, constipation, diarrhea, nausea, vomiting Genitourinary: ABSENT: dysuria, hematuria Musculoskeletal: PRESENT: as per HPI, other - Left lower extremity pain. ABSENT: back pain, joint swelling Integumentary: ABSENT: pruritus, rash Neurological: ABSENT: confusion, convulsions, focal weakness, memory loss, syncope Psychiatric: ABSENT: anxiety, depression Endocrine: ABSENT: cold intolerance, heat intolerance Hematologic/Lymphatic: ABSENT: easy bleeding, easy bruising Allergic/Immunologic: ABSENT: seasonal rhinorrhea Physical Exam Vital Signs: Temp Pulse Resp BP Pulse Ox 98.4 F 27 H 101/52 L 94 01/04/20 03:03 01/04/20 03:03 01/04/20 03:03 01/04/20 03:03 Intake & Output 01/02/20 01/03/20 01/04/20 23:59 23:59 23:59 Intake Total 50 Balance 50 Weight 130 kg General appearance: PRESENT: cooperative, mild distress - Secondary to left lower extremity pain, morbidly obese Head exam: PRESENT: atraumatic, normocephalic Eye exam: PRESENT: conjunctiva pink. ABSENT: conjunctival injection, scleral icterus Ear exam: PRESENT: normal external ear exam. ABSENT: bleeding, drainage Mouth exam: PRESENT: dry mucosa, neck supple Neck exam: ABSENT: thyromegaly, tracheal deviation Respiratory exam: PRESENT: clear to auscultation theresa, symmetrical, unlabored Cardiovascular exam: PRESENT: RRR. ABSENT: clicks, gallop, rubs Pulses: PRESENT: normal radial pulses, normal dorsalis pedis pul Vascular exam: PRESENT: normal capillary refill. ABSENT: pallor GI/Abdominal exam: PRESENT: normal bowel sounds, soft Rectal exam: PRESENT: deferred Extremities exam: PRESENT: pedal edema - Bilateral, tenderness - Erythema with increased warmth, slightly increased edema with induration and tenderness left lower extremity from the distal thigh to the ankle, +1 edema - Pretibial edema of the right lower extremity. ABSENT: joint swelling Musculoskeletal exam: ABSENT: deformity, dislocation Neurological exam: PRESENT: alert, oriented to person, oriented to place, oriented to time, oriented to situation, CN II-XII grossly intact. ABSENT: motor sensory deficit Psychiatric exam: PRESENT: appropriate affect, normal mood Skin exam: PRESENT: dry, intact, warm, other - Erythema with increased warmth, slightly increased edema with induration and tenderness left lower extremity from the distal thigh to the ankle. ABSENT: jaundice, rash, urticaria Results Laboratory Results: 01/03/20 23:42 01/03/20 23:42 01/03/20 01/03/20 01/03/20 23:42 23:42 23:42 WBC 24.8 H RBC 3.40 L Hgb 10.9 L Hct 31.9 L MCV 94 MCH 32.0 MCHC 34.1 RDW 12.2 Plt Count 197 Seg Neutrophils % Not Reportable VBG pH 7.34 VBG pCO2 46.9 VBG HCO3 24.8 VBG Base Excess -1.3 Sodium 131.5 L Potassium 4.8 Chloride 100 Carbon Dioxide 25 Anion Gap 7 BUN 18 Creatinine 1.43 H Est GFR ( Amer) 44 L Glucose 124 H Lactic Acid Calcium 8.6 Total Bilirubin 0.7 AST 88 H Alkaline Phosphatase 100 Total Protein 8.4 H Albumin 4.2 Urine Color Urine Appearance Urine pH Ur Specific Neligh Urine Protein Urine Glucose (UA) Urine Ketones Urine Blood Urine RBC (Auto) 01/03/20 01/04/20 23:42 00:02 WBC RBC Hgb Hct MCV MCH MCHC RDW Plt Count Seg Neutrophils % VBG pH VBG pCO2 VBG HCO3 VBG Base Excess Sodium Potassium Chloride Carbon Dioxide Anion Gap BUN Creatinine Est GFR ( Amer) Glucose Lactic Acid 1.5 Calcium Total Bilirubin AST Alkaline Phosphatase Total Protein Albumin Urine Color YELLOW Urine Appearance CLEAR Urine pH 5.0 Ur Specific Neligh 1.017 Urine Protein 100 H Urine Glucose (UA) NEGATIVE Urine Ketones NEGATIVE Urine Blood SMALL H Urine RBC (Auto) 6 01/04/20 00:35 Troponin I 0.047 Impressions: Chest X-Ray 01/03/20 22:29 IMPRESSION: No acute cardiopulmonary process copyright 2010 [email or web address]- All Rights Reserved Assessment and Plan - Diagnosis (1) Cellulitis of leg Qualifiers: Laterality: left Qualified Code(s): L03.116 - Cellulitis of left lower limb Is this a current diagnosis for this admission?: Yes (2) Leukocytosis Qualifiers: Leukocytosis type: bandemia Qualified Code(s): D72.825 - Bandemia Is this a current diagnosis for this admission?: Yes (3) CKD (chronic kidney disease), stage III Is this a current diagnosis for this admission?: Yes (4) Morbid obesity Is this a current diagnosis for this admission?: Yes - Plan Summary Summary: Patient will be admitted to the medical floor where she will receive routine supportive and symptomatic cares. She will be treated with IV antibiotics utilizing Zyvox and cefepime. She will receive morphine sulfate 2 to 4 mg IV every 2 hours as needed for pain. She will use Ativan 1 mg IV every 4 hours as needed for anxiety or restlessness. She will receive a cardiac diet. Physical therapy consultation will be obtained. CBCs, metabolic profiles, magnesium levels and additional laboratory and/or radiographic evaluations will be obtained as appropriate. - Time Time Spent with patient: 15-24 minutes Medications reviewed and adjusted accordingly: Yes Anticipated Discharge Disposition: Home with Home Health Anticipated Discharge: when bed available Anticipated discharge: Home with Homehealth - Inpatient Certification Based on my medical assessment, after consideration of the patient's comorbidities, presenting symptoms, or acuity I expect that the services needed warrant INPATIENT care.: Yes I certify that my determination is in accordance with my understanding of Medicare's requirements for reasonable and necessary INPATIENT services [42 CFR 412.3e].: Yes Medical Necessity: Significant Comorbidiites Make Outpatient Treatment Too Risky, Need Close Monitoring Due to Risk of Patient Decompensation, Need for Pain Control, Need for IV Antibiotics, Risk of Complication if Not Cared For in Hospital
[2020-01-04] MEDS: ACETAMINOPHEN 325 MG TABLET PO PRN ×2 (08:36→18:27)
[2020-01-04] MEDS: DOCUSATE SODIUM 100 MG CAPSULE PO SCH ×2 (08:59→17:12)
[2020-01-04] MEDS: LINEZOLID 600 MG/300 ML RTUPB IV SCH ×2 (08:59→21:02)
[2020-01-04] MEDS ORDERED: METOPROLOL TARTRATE PF/INJ 5 MG/5 ML SDV IV ONE ×2 (10:15→11:00)
[2020-01-04] MEDS ORDERED: NORMAL SALINE 1000 ML 1,000 ML IV ONE ×2 (12:30→15:00)
[2020-01-04] MEDS ORDERED: KETOROLAC TROMETHAMINE INJ/PF 30 MG/1 ML SDV IV ONE (15:00)
--- NOTE | 2020-01-04 15:46 | Progress Note ---
Provider Note Provider Note: She was admitted with cellulitis of the left medial thigh. Her blood pressures have dropped down some today but she is responded to fluid boluses. She was febrile earlier on but her temperature seems to have subsided. We will continue with antibiotics and following up of blood cultures. No drainable fluid colle ction yet noted on examination but this will require serial examination.
[2020-01-04] MEDS: CEFEPIME 1 GM/D5W RTU 1 GM/50 ML RTUPB IV SCH (17:24)
[2020-01-04] MEDS: ENOXAPARIN SODIUM INJ 150 MG/1 ML DISP.SYRIN SUBCUT SCH (20:11)
[2020-01-04 20:44] LABS: CREATINE KINASE MB 5.12 ng/mL (<4.55); TROPONIN I 0.058 ng/mL
[2020-01-05] MEDS: MORPHINE SULFATE 10 MG/ML INJ IV PRN ×4 (02:31→17:00)
[2020-01-05 02:57] LABS: HEMATOCRIT 30.3 % (36.0-47.0); HEMOGLOBIN 10.3 g/dL (12.0-15.5); MEAN CORPUSCULAR HGB CONC 34.1 g/dL (32.0-36.0); MEAN CORPUSCULAR VOLUME 94 fl (80-97); PLATELET COUNT 149 10^3/uL (150-450); RED BLOOD COUNT 3.23 10^6/uL (3.72-5.28); RED CELL DISTRIBUTION WIDTH 12.3 % (11.5-14.0); WHITE BLOOD COUNT 19.4 10^3/uL (4.0-10.5)
[2020-01-05 03:26] LABS: ANION GAP 5 (5-19); BLOOD UREA NITROGEN 29 mg/dL (7-20); CALCIUM 7.9 mg/dL (8.4-10.2); CARBON DIOXIDE 23 mmol/L (22-30); CHLORIDE 104 mmol/L (98-107); CREATINE KINASE 519 U/L (30-135); GLUCOSE 106 mg/dL (75-110); POTASSIUM 4.5 mmol/L (3.6-5.0)
[2020-01-05 03:38] LABS: CREATINE KINASE MB 4.58 ng/mL (<4.55); TROPONIN I 0.055 ng/mL
[2020-01-05] MEDS: CEFEPIME 1 GM/D5W RTU 1 GM/50 ML RTUPB IV SCH ×2 (05:05→18:31)
[2020-01-05] MEDS: PANTOPRAZOLE SODIUM 40 MG TABLET.DR PO SCH (05:05)
[2020-01-05] MEDS ORDERED: DIGOXIN INJ 0.5 MG/2 ML AMPULE ONE (05:31)
[2020-01-05] MEDS ORDERED: DIGOXIN INJ 0.5 MG/2 ML AMPULE IV ONE (05:45)
[2020-01-05] MEDS ORDERED: OXYCODONE-ACETAMINOPHEN 5-325 MG TABLET PO PRN (07:59)
[2020-01-05] MEDS ORDERED: (PENDING PHARMACY ID) (Buprenorphine [Butrans] 1 EACH) TD SCH (08:00)
[2020-01-05] MEDS ORDERED: NORMAL SALINE 1000 ML 1,000 ML IV PRN (08:03)
[2020-01-05] MEDS ORDERED: METOPROLOL TARTRATE PF/INJ 5 MG/5 ML SDV IV PRN (08:52)
[2020-01-05] MEDS: DOCUSATE SODIUM 100 MG CAPSULE PO SCH ×2 (09:02→18:24)
[2020-01-05] MEDS: MAGNESIUM SULFATE/D5W 1 GM/100 ML RTUPB IV SCH ×2 (09:02→14:24)
[2020-01-05] MEDS: CARVEDILOL 12.5 MG TABLET PO SCH ×2 (09:02→21:12)
[2020-01-05] MEDS: LINEZOLID 600 MG/300 ML RTUPB IV SCH ×2 (09:38→21:11)
[2020-01-05] MEDS: PAROXETINE HCL 20 MG TABLET PO SCH (09:39)
[2020-01-05] MEDS: ENOXAPARIN SODIUM INJ 150 MG/1 ML DISP.SYRIN SUBCUT SCH (09:46)
[2020-01-05 10:01] LABS: CREATINE KINASE MB 4.21 ng/mL (<4.55); TROPONIN I 0.04 ng/mL
--- NOTE | 2020-01-05 10:26 | EKG REPORT ---
SEVERITY:- ABNORMAL ECG - ATRIAL FIBRILLATION BORDERLINE LEFT AXIS DEVIATION NONSPECIFIC T ABNORMALITIES, LATERAL LEADS BORDERLINE PROLONGED QT INTERVAL : Confirmed by: Martha Schreiber 05-Jan-2020 10:25:26
[2020-01-05] MEDS: CETIRIZINE 10 MG TABLET PO SCH (11:01)
[2020-01-05] MEDS ORDERED: FUROSEMIDE INJ/PF 40 MG/4 ML SDV IV ONE (11:11)
--- NOTE | 2020-01-05 11:12 | PDOC PROGRESS REPORT ---
Subjective Progress Note for:: 01/05/20 Subjective:: Patient feels well today. States that she feels more energetic than yesterday and a lot less lethargic. Denies any shortness of breath. Complains of pain in her knee. States that she takes Percocet and buprenorphine patch at home. Went into A. fib with rapid ventricular response into the 120s overnight and this morning. Received digoxin last night. Patient states that she has been told on previous occasions that she had A. fib only when she was in the hospital and her Coreg was discontinued. Follows with [facility] cardiology. Not currently on anticoagulants but denies history of any severe GI bleed. Reason For Visit: CELLULITIS LEFT LOWER EXTREMITY, LEUKOCYTOSIS Physical Exam Vital Signs: Temp Pulse Resp BP Pulse Ox 98.5 F 124 H 16 124/52 L 100 01/05/20 08:29 01/05/20 08:29 01/05/20 08:29 01/05/20 08:29 01/05/20 08:29 Intake & Output 01/04/20 01/05/20 01/06/20 06:59 06:59 06:59 Intake Total 50 3396 Balance 50 3396 Weight 130 kg 129.9 kg General appearance: PRESENT: no acute distress, cooperative Neck exam: ABSENT: JVD Respiratory exam: PRESENT: clear to auscultation theresa, unlabored. ABSENT: tachypnea, wheezes Cardiovascular exam: PRESENT: irregular rhythm, +S1, +S2. ABSENT: tachycardia GI/Abdominal exam: PRESENT: soft. ABSENT: rebound, rigid, tenderness Extremities exam: PRESENT: other - Erythema present in left leg lower and also fat fold on the thigh Neurological exam: PRESENT: alert, awake, oriented to person, oriented to place, oriented to time Results Laboratory Results: 01/05/20 02:48 01/05/20 02:48 01/05/20 01/05/20 01/05/20 02:48 02:48 02:48 WBC 19.4 H RBC 3.23 L Hgb 10.3 L Hct 30.3 L MCV 94 MCH 32.0 MCHC 34.1 RDW 12.3 Plt Count 149 L Sodium 132.2 L Potassium 4.5 Chloride 104 Carbon Dioxide 23 Anion Gap 5 BUN 29 H Creatinine 1.77 H Est GFR ( Amer) 35 L Glucose 106 Calcium 7.9 L Magnesium 1.4 L TSH 1.72 01/03/20 23:42 Blood Blood Culture (PCR) - Final Staphylococcus Species 01/04/20 01/04/20 01/04/20 00:35 19:59 19:59 Creatine Kinase 594 H CK-MB (CK-2) 5.12 H Troponin I 0.047 0.058 NT-Pro-B Natriuret Pep 01/05/20 01/05/20 01/05/20 02:48 02:48 02:48 Creatine Kinase 519 H CK-MB (CK-2) 4.58 H Troponin I 0.055 NT-Pro-B Natriuret Pep 62263 H 01/05/20 01/05/20 09:00 09:00 Creatine Kinase 497 H CK-MB (CK-2) 4.21 Troponin I 0.040 NT-Pro-B Natriuret Pep Impressions: Chest X-Ray 01/03/20 22:29 IMPRESSION: No acute cardiopulmonary process copyright 2010 [employer]- All Rights Reserved Assessment and Plan - Diagnosis (1) Cellulitis of leg Qualifiers: Laterality: left Qualified Code(s): L03.116 - Cellulitis of left lower limb Is this a current diagnosis for this admission?: Yes Plan: Continue linezolid and cefepime. Patient with severe leukocytosis of 19,000 which shows improvement from initial presentation. Continue to monitor CBC. Blood culture is positive for coagulase-negative staph in 1 blood culture bottle only highly suspicious of contaminant. Continue to monitor patient's erythema for improvement. Pain control as needed. (2) Paroxysmal atrial fibrillation with rapid ventricular response Is this a current diagnosis for this admission?: Yes Plan: Patient seems to have had atrial fibrillation reported to have in the past while she was in the hospital only. Follows with [facility] cardiology. Give patient a dose of IV Lopressor which improved her heart rate. It is poss ible that patient's A. fib could have been triggered by patient's current infection. Resume Coreg EKG reviewed by me showing atrial fibrillation Nonetheless, patient's CHADsVasc score is 3 and as patient has denied any history of severe GI bleed, I will start patient on Eliquis Patient's BNP is also significantly elevated at 11,000. Unknown what her recent baseline is. I will check another chest x-ray as patient has received quite a bit of fluids which had expected to have improved her heart rate. Check echocardiogram on Tuesday. (3) Acute kidney injury superimposed on CKD Is this a current diagnosis for this admission?: Yes Plan: Baseline creatinine seems to be 1.2-1.4. Today creatinine is 1.77 despite receiving a couple liters of IV fluid yesterday. I am starting to wonder if she may benefit from diuresis instead. We will give a dose of Lasix IV and repeat BMP tomorrow. (4) Fever Is this a current diagnosis for this admission?: Yes Plan: Current likely secondary to cellulitis. Currently she is afebrile. COVID-19 test is pending. (5) Morbid obesity Is this a current diagnosis for this admission?: Yes Plan: Dietary and lifestyle modifications - Time Time Spent with patient: 15-24 minutes Anticipated Discharge Disposition: Home with Home Health Anticipated Discharge: within 72 hours
--- NOTE | 2020-01-05 12:03 | RADIOLOGY REPORT (SQ) ---
EXAM DESCRIPTION: CHEST SINGLE VIEW IMAGES COMPLETED DATE/TIME: 01/05/2020 11:35 am REASON FOR STUDY: ?? chf COMPARISON: 01/04/2020 NUMBER OF VIEWS: One view. TECHNIQUE: Single frontal radiographic view of the chest acquired. LIMITATIONS: None. FINDINGS: LUNGS AND PLEURA: No opacities, masses or pneumothorax. No pleural effusion. MEDIASTINUM AND HILAR STRUCTURES: No masses. Contour normal. HEART AND VASCULAR STRUCTURES: Heart enlarged without failure. Normal vasculature. BONES: No acute findings. HARDWARE: None in the chest. OTHER: No other significant finding. IMPRESSION: HEART ENLARGED WITHOUT FAILURE. NO OTHER SIGNIFICANT RADIOGRAPHIC FINDING IN THE CHEST. TECHNICAL DOCUMENTATION: JOB ID: [id number] 2010 [employer]- All Rights Reserved Reading location - IP/workstation name: [email or web address]
[2020-01-05] MEDS ORDERED: MAGNESIUM SULFATE/D5W 1 GM/100 ML RTUPB IV ONE (14:12)
[2020-01-05] MEDS ORDERED: FUROSEMIDE INJ/PF 40 MG/4 ML SDV ONE (14:16)
[2020-01-05 16:37] LABS: APPEARANCE,URINE CLEAR; BILIRUBIN,URINE NEGATIVE (NEGATIVE); COLOR,URINE STRAW; GLUCOSE, URINE NEGATIVE (NEGATIVE); KETONES,URINE NEGATIVE (NEGATIVE); LEUKOCYTE ESTERASE,URINE LARGE (NEGATIVE); NITRITE,URINE NEGATIVE (NEGATIVE); PROTEIN,URINE NEGATIVE (NEGATIVE); URINE SPECIFIC GRAVITY 1.004; UROBILINOGEN,URINE NEGATIVE mg/dL (<2.0)
[2020-01-05] MEDS: APIXABAN 5 MG TABLET PO SCH (18:31)
[2020-01-05] MEDS: OXYCODONE-ACETAMINOPHEN 5-325 MG TABLET PO PRN (18:31)
[2020-01-05] MEDS: SIMVASTATIN 10 MG TABLET PO SCH (21:12)
--- NOTE | 2020-01-05 21:42 | EKG REPORT ---
SEVERITY:- ABNORMAL ECG - ATRIAL FIBRILLATION NONSPECIFIC INTRAVENTRICULAR CONDUCTION DELAY : Confirmed by: Martha Schreiber 05-Jan-2020 21:42:27
[2020-01-06] MEDS: HYDROXYZINE PAMOATE 25 MG CAPSULE PO PRN ×3 (00:52→15:23)
[2020-01-06] MEDS: MORPHINE SULFATE 10 MG/ML INJ IV PRN ×4 (01:00→21:59)
[2020-01-06 05:40] LABS: HEMATOCRIT 26.9 % (36.0-47.0); HEMOGLOBIN 9.3 g/dL (12.0-15.5); MEAN CORPUSCULAR HEMOGLOBIN 32.4 pg (27.0-33.4); MEAN CORPUSCULAR HGB CONC 34.8 g/dL (32.0-36.0); MEAN CORPUSCULAR VOLUME 93 fl (80-97); PLATELET COUNT 139 10^3/uL (150-450); RED BLOOD COUNT 2.88 10^6/uL (3.72-5.28); WHITE BLOOD COUNT 11.9 10^3/uL (4.0-10.5)
[2020-01-06] MEDS: PANTOPRAZOLE SODIUM 40 MG TABLET.DR PO SCH (06:43)
[2020-01-06] MEDS: CEFEPIME 1 GM/D5W RTU 1 GM/50 ML RTUPB IV SCH ×2 (06:43→17:54)
[2020-01-06 08:18] LABS: ANION GAP 6 (5-19); BLOOD UREA NITROGEN 31 mg/dL (7-20); CALCIUM 8.3 mg/dL (8.4-10.2); CARBON DIOXIDE 24 mmol/L (22-30); CHLORIDE 101 mmol/L (98-107); GLUCOSE 99 mg/dL (75-110); POTASSIUM 4.8 mmol/L (3.6-5.0)
[2020-01-06] MEDS: CARVEDILOL 12.5 MG TABLET PO SCH ×2 (09:38→22:04)
[2020-01-06] MEDS: DOCUSATE SODIUM 100 MG CAPSULE PO SCH ×2 (09:38→17:55)
[2020-01-06] MEDS: PAROXETINE HCL 20 MG TABLET PO SCH (09:39)
[2020-01-06] MEDS: APIXABAN 5 MG TABLET PO SCH ×2 (09:40→17:54)
[2020-01-06] MEDS: OXYCODONE-ACETAMINOPHEN 5-325 MG TABLET PO PRN (09:41)
[2020-01-06] MEDS: CETIRIZINE 10 MG TABLET PO SCH (09:41)
[2020-01-06] MEDS ORDERED: CETIRIZINE 10 MG TABLET PO SCH (10:00)
[2020-01-06] MEDS: LINEZOLID 600 MG/300 ML RTUPB IV SCH ×2 (10:56→22:04)
--- NOTE | 2020-01-06 17:38 | PDOC PROGRESS REPORT ---
Subjective Progress Note for:: 01/06/20 Subjective:: Patient feels better today. This pain and swelling in her legs have improved. She denies any fever or chills. She is fully awake and alert. Reason For Visit: CELLULITIS LEFT LOWER EXTREMITY, LEUKOCYTOSIS Physical Exam Vital Signs: Temp Pulse Resp BP Pulse Ox 98.5 F 70 14 91/34 L 96 01/06/20 15:01 01/06/20 15:01 01/06/20 15:01 01/06/20 15:01 01/06/20 15:01 Intake & Output 01/05/20 01/06/20 01/07/20 06:59 06:59 06:59 Intake Total 3396 2311 835 Output Total 4845 500 Balance 3396 -3357 335 Weight 129.9 kg 130.1 kg General appearance: PRESENT: no acute distress, cooperative Neck exam: ABSENT: JVD Respiratory exam: PRESENT: unlabored. ABSENT: accessory muscle use, retraction, tachypnea GI/Abdominal exam: PRESENT: soft. ABSENT: rigid, tenderness Extremities exam: PRESENT: other - Erythema of left leg has significantly improved Neurological exam: PRESENT: alert, awake Results Laboratory Results: 01/06/20 04:48 01/06/20 04:48 01/06/20 01/06/20 04:48 04:48 WBC 11.9 H RBC 2.88 L Hgb 9.3 L Hct 26.9 L MCV 93 MCH 32.4 MCHC 34.8 RDW 12.0 Plt Count 139 L Sodium 130.8 L Potassium 4.8 Chloride 101 Carbon Dioxide 24 Anion Gap 6 BUN 31 H Creatinine 1.76 H Est GFR ( Amer) 35 L Glucose 99 Calcium 8.3 L 01/03/20 23:42 Blood Blood Culture (PCR) - Final Staphylococcus Species 01/04/20 01/04/20 01/04/20 00:35 19:59 19:59 Creatine Kinase 594 H CK-MB (CK-2) 5.12 H Troponin I 0.047 0.058 NT-Pro-B Natriuret Pep 01/05/20 01/05/20 01/05/20 02:48 02:48 02:48 Creatine Kinase 519 H CK-MB (CK-2) 4.58 H Troponin I 0.055 NT-Pro-B Natriuret Pep 88824 H 01/05/20 01/05/20 09:00 09:00 Creatine Kinase 497 H CK-MB (CK-2) 4.21 Troponin I 0.040 NT-Pro-B Natriuret Pep Impressions: Chest X-Ray 01/05/20 00:00 IMPRESSION: HEART ENLARGED WITHOUT FAILURE. NO OTHER SIGNIFICANT RADIOGRAPHIC FINDING IN THE CHEST. Assessment and Plan - Diagnosis (1) Cellulitis of leg Qualifiers: Laterality: left Qualified Code(s): L03.116 - Cellulitis of left lower limb Is this a current diagnosis for this admission?: Yes Plan: Continue linezolid and cefepime. Leukocytosis continues to improve down to 11,000 today. Continue to monitor. Oagulase-negative staph in 1 blood culture bottle only highly suspicious of contaminant. Cellulitis seems to be improving and will likely be able to be discharged tomorrow. (2) Paroxysmal atrial fibrillation with rapid ventricular response Is this a current diagnosis for this admission?: Yes Plan: Patient seems to have had atrial fibrillation reported to have in the past while she was in the hospital only. Follows with [facility] cardiology. Continue Coreg EKG reviewed by me showing atrial fibrillation Nonetheless, patient's CHADsVasc score is 3 and as patient has denied any history of severe GI bleed, I have started patient on Eliquis Patient's BNP is also significantly elevated at 11,000. No overt pulmonary edema on chest x-ray no cardiomegaly noted. Check echocardiogram on Tuesday. (3) Acute kidney injury superimposed on CKD Is this a current diagnosis for this admission?: Yes Plan: Baseline creatinine seems to be 1.2-1.4. Creatinine seems to be stabilizing at 1.7. We will continue to monitor renal function. (4) Fever Is this a current diagnosis for this admission?: Yes Plan: Current likely secondary to cellulitis. Currently she is afebrile. COVID-19 t est is pending. (5) Morbid obesity Is this a current diagnosis for this admission?: Yes - Time Time Spent with patient: Less than 15 minutes Anticipated Discharge Disposition: Home, Self Care Anticipated Discharge: within 24 hours
[2020-01-06] MEDS: SIMVASTATIN 10 MG TABLET PO SCH (22:04)
[2020-01-07 05:28] LABS: HEMATOCRIT 26.6 % (36.0-47.0); HEMOGLOBIN 9.2 g/dL (12.0-15.5); MEAN CORPUSCULAR HEMOGLOBIN 32.2 pg (27.0-33.4); MEAN CORPUSCULAR HGB CONC 34.5 g/dL (32.0-36.0); MEAN CORPUSCULAR VOLUME 94 fl (80-97); PLATELET COUNT 171 10^3/uL (150-450); RED BLOOD COUNT 2.85 10^6/uL (3.72-5.28); WHITE BLOOD COUNT 7.4 10^3/uL (4.0-10.5)
[2020-01-07] MEDS: CEFEPIME 1 GM/D5W RTU 1 GM/50 ML RTUPB IV SCH (05:50)
[2020-01-07] MEDS: PANTOPRAZOLE SODIUM 40 MG TABLET.DR PO SCH (05:50)
[2020-01-07 05:54] LABS: ANION GAP 5 (5-19); BLOOD UREA NITROGEN 27 mg/dL (7-20); CALCIUM 8.3 mg/dL (8.4-10.2); CARBON DIOXIDE 22 mmol/L (22-30); CHLORIDE 104 mmol/L (98-107); GLUCOSE 99 mg/dL (75-110); POTASSIUM 4.5 mmol/L (3.6-5.0)
[2020-01-07] MEDS: DOCUSATE SODIUM 100 MG CAPSULE PO SCH (09:24)
[2020-01-07] MEDS: CARVEDILOL 12.5 MG TABLET PO SCH (09:29)
[2020-01-07] MEDS: CETIRIZINE 10 MG TABLET PO SCH (09:29)
[2020-01-07] MEDS: PAROXETINE HCL 20 MG TABLET PO SCH (09:29)
[2020-01-07] MEDS: APIXABAN 5 MG TABLET PO SCH (09:29)
[2020-01-07] MEDS: LINEZOLID 600 MG/300 ML RTUPB IV SCH (09:30)
[2020-01-07] MEDS ORDERED: PROMETHAZINE HCL INJ 25 MG/1 ML VIAL IV PRN (10:00)
[2020-01-07 12:43] VITALS: BP 94/45
--- NOTE | 2020-01-07 12:45 | PDOC DISCHARGE SUMMARY ---
Impression - Admit/DC Date/PCP Admission Date/Primary Care Provider: 01/04/20 03:40 JIMMY WALDEN MD Discharge Date: 01/07/20 - Discharge Diagnosis (1) Cellulitis of leg Is this a current diagnosis for this admission?: Yes (2) Paroxysmal atrial fibrillation with rapid ventricular response Is this a current diagnosis for this admission?: Yes (3) Acute kidney injury superimposed on CKD Is this a current diagnosis for this admission?: Yes (4) Fever Is this a current diagnosis for this admission?: Yes (5) Morbid obesity Is this a current diagnosis for this admission?: Yes - Additional Information Resuscitation Status: Full Code Discharge Diet: As Tolerated Discharge Activity: Activity As Tolerated Referrals: JIMMY WALDEN MD [Primary Care Provider] - Follow up as needed JACINTO LOMAS MD [ACTIVE STAFF] - Prescriptions: Apixaban [Eliquis 5 mg Tablet] 5 mg PO BID #60 tablet Cephalexin Monohydrate [Keflex 500 mg Capsule] 500 mg PO TID 8 Days #24 capsule Linezolid 600 mg PO BID #14 tablet Home Medications: Paroxetine HCl [Paxil] 30 mg PO DAILY 08/05/12 Simvastatin [Zocor 20 mg Tablet] 20 mg PO QHS 08/05/12 Buprenorphine [Butrans] 1 each TD Q7D 01/04/20 Carvedilol [Coreg 12.5 mg Tablet] 12.5 mg PO Q12 01/04/20 Losartan Potassium 100 mg PO DAILY 01/04/20 Oxycodone HCl/Acetaminophen [Percocet 7.5-325 mg Tablet] 1 each PO QID 01/04/20 Apixaban [Eliquis 5 mg Tablet] 5 mg PO BID #60 tablet 01/07/20 Cephalexin Monohydrate [Keflex 500 mg Capsule] 500 mg PO TID 8 Days #24 capsule 01/07/20 Linezolid 600 mg PO BID #14 tablet 01/07/20 History of Present Illiness History of Present Illness: According to admitting provider: SANDHYA MAN is a 64 year old female who presents the emergency room with a 2-day history of left lower extremity pain. She admits progressively worsening constant, nonradiating, aching and throbbing pain in her left lower extremity over the last 2 days becoming severe on 01/03/2020 such that she was unable to bear weight on the left foot and's was unable to walk even using her walker. Her pain has been accompanied by subjective fever and chills and associated with generalized weakness and malaise. She denies other associated or accompanying signs and symptoms. She admits a prior similar episode with cellulitis several years ago. She has not identified any additional aggravating or ameliorating factors for her left lower leg pain. In the emergency room she was found to have an obvious cellulitis on examination of the left lower extremity and a white blood count of 24,800. She was subsequently admitted to the hospital for further evaluation treatment. Hospital Course Hospital Course: Patient was admitted to the hospital for evaluation of cellulitis. On presentation patient had severe leukocytosis of 24,000 and was febrile. However, she did not appear to be septic. She was tested empirically for COVID- 19 which ended up resulting as negative. She was treated for cellulitis of her left lower leg and started on broad-spectrum antibiotics IV receiving linezolid and cefepime. She was also notable to go into paroxysmal atrial fibrillation with rapid ventricular response. Upon discussion with patient, patient endorsed that she has been told in the past that she will need to rapid A. fib when she was in the hospital at other facilities but had never been diagnosed with it outpatient. She does take Coreg which have continued while she has been in the hospital. It seems that her atrial fibrillation is likely provoked by current infection. However in light of patient's episodes of paroxysmal A. fib now on in the past, elevated chads vas score, after discussing with patient have opted to start her on anticoagulation therapy with Eliquis. She is scheduled to follow-up with primary perinatal tech or to see Dr. Lomas if she prefers for further management of A. fib as well as to get an echocardiogram performed in the outpatient setting. In terms of her cellulitis, her white count has normalized and she has done quite well. The cellulitis seems to be improving significantly and at this point she is being discharged with oral antibiotic therapy for the next several days. Her blood culture resulted with 1 out of 4 bottles positive for methicillin-resistant coagulase-negative staph which may very well be a contaminant but given the cellulitis, I have chosen to discharge her on linezolid and Keflex. Her blood pressure has been low-normal to normal while in the hospital off losartan and as a result I am discharging her with instruction to keep holding the losartan but to monitor her blood pressure closely and discuss with her primary care provider about restarting initial blood pressure start to trend back up. Physical Exam Vital Signs: Temp Pulse Resp BP Pulse Ox 98.5 F 76 16 94/45 L 95 01/07/20 12:32 01/07/20 12:32 01/07/20 12:32 01/07/20 12:32 01/07/20 12:32 Intake & Output 01/06/20 01/07/20 01/08/20 06:59 06:59 06:59 Intake Total 2312 1545 350 Output Total 4808 9821 Balance -9984 -173 350 Weight 130.1 kg 130.1 kg General appearance: PRESENT: no acute distress, cooperative Neck exam: ABSENT: JVD Respiratory exam: PRESENT: unlabored. ABSENT: accessory muscle use, retraction Neurological exam: PRESENT: alert, awake Results Laboratory Results: WBC 7.4 10^3/uL (4.0-10.5) 01/07/20 04:31 RBC 2.85 10^6/uL (3.72-5.28) L 01/07/20 04:31 Hgb 9.2 g/dL (12.0-15.5) L 01/07/20 04:31 Hct 26.6 % (36.0-47.0) L 01/07/20 04:31 MCV 94 fl (80-97) 01/07/20 04:31 MCH 32.2 pg (27.0-33.4) 01/07/20 04:31 MCHC 34.5 g/dL (32.0-36.0) 01/07/20 04:31 RDW 12.0 % (11.5-14.0) 01/07/20 04:31 Plt Count 171 10^3/uL (150-450) 01/07/20 04:31 Lymph % (Auto) Not Reportable 01/03/20 23:42 Coal % (Auto) Not Reportable 01/03/20 23:42 Eos % (Auto) Not Reportable 01/03/20 23:42 Baso % (Auto) Not Reportable 01/03/20 23:42 Absolute Neuts (auto) Not Reportable 01/03/20 23:42 Absolute Lymphs (auto) Not Reportable 01/03/20 23:42 Absolute Monos (auto) Not Reportable 01/03/20 23:42 Absolute Eos (auto) Not Reportable 01/03/20 23:42 Absolute Basos (auto) Not Reportable 01/03/20 23:42 Total Counted 100 01/03/20 23:42 Seg Neutrophils % Not Reportable 01/03/20 23:42 Seg Neuts % (Manual) 93 % (42-78) H 01/03/20 23:42 Band Neutrophils % 1 % (3-5) L 01/03/20 23:42 Lymphocytes % (Manual) 2 % (13-45) L 01/03/20 23:42 Monocytes % (Manual) 4 % (3-13) 01/03/20 23:42 Eosinophils % (Manual) 0 % (0-6) 01/03/20 23:42 Basophils % (Manual) 0 % (0-2) 01/03/20 23:42 Abs Neuts (Manual) 23.3 10^3/uL (1.7-8.2) H 01/03/20 23:42 Abs Lymphs (Manual) 0.5 10^3/uL (0.5-4.7) 01/03/20 23:42 Abs Monocytes (Manual) 1.0 10^3/uL (0.1-1.4) 01/03/20 23:42 Absolute Eos (Manual) 0.0 10^3/uL (0.0-0.6) 01/03/20 23:42 Abs Basophils (Manual) 0.0 10^3/uL (0.0-0.2) 01/03/20 23:42 Platelet Comment ADEQUATE 01/03/20 23:42 RBC Morph Comment NORMO-CYTIC/CHROMIC 01/03/20 23:42 VBG pH 7.34 (7.30-7.42) 01/03/20 23:42 VBG pCO2 46.9 mmHg (35-63) 01/03/20 23:42 VBG HCO3 24.8 mmol/L (20-32) 01/03/20 23:42 VBG Base Excess -1.3 mmol/L 01/03/20 23:42 Sodium 131.0 mmol/L (137-145) L 01/07/20 04:31 Potassium 4.5 mmol/L (3.6-5.0) 01/07/20 04:31 Chloride 104 mmol/L (98-107) 01/07/20 04:31 Carbon Dioxide 22 mmol/L (22-30) 01/07/20 04:31 Anion Gap 5 (5-19) 01/07/20 04:31 BUN 27 mg/dL (7-20) H 01/07/20 04:31 Creatinine 1.61 mg/dL (0.52-1.25) H 01/07/20 04:31 Est GFR ( Amer) 39 (>60) L 01/07/20 04:31 Est GFR (MDRD) Non-Af 32 (>60) L 01/07/20 04:31 Glucose 99 mg/dL (75-110) 01/07/20 04:31 Lactic Acid 1.7 mmol/L (0.7-2.1) 01/04/20 06:44 Calcium 8.3 mg/dL (8.4-10.2) L 01/07/20 04:31 Magnesium 1.4 mg/dL (1.6-2.3) L 01/05/20 02:48 Total Bilirubin 0.7 mg/dL (0.2-1.3) 01/03/20 23:42 Direct Bilirubin 0.1 mg/dL (0.0-0.4) 01/03/20 23:42 Neonat Total Bilirubin Not Reportable 01/03/20 23:42 Neonat Direct Bilirubin Not Reportable 01/03/20 23:42 Neonat Indirect Bili Not Reportable 01/03/20 23:42 AST 88 U/L (14-36) H 01/03/20 23:42 ALT 48 U/L (<35) H 01/03/20 23:42 Alkaline Phosphatase 100 U/L (38-126) 01/03/20 23:42 Creatine Kinase 497 U/L (30-135) H 01/05/20 09:00 CK-MB (CK-2) 4.21 ng/mL (<4.55) 01/05/20 09:00 Troponin I 0.040 ng/mL 01/05/20 09:00 NT-Pro-B Natriuret Pep 41002 pg/mL (<125) H 01/05/20 02:48 Total Protein 8.4 g/dL (6.3-8.2) H 01/03/20 23:42 Albumin 4.2 g/dL (3.5-5.0) 01/03/20 23:42 TSH 1.72 uIU/mL (0.47-4.68) 01/05/20 02:48 Urine Color STRAW 01/05/20 16:05 Urine Appearance CLEAR 01/05/20 16:05 Urine pH 5.0 (5.0-9.0) 01/05/20 16:05 Ur Specific [place] 1.004 01/05/20 16:05 Urine Protein NEGATIVE mg/dL (NEGATIVE) 01/05/20 16:05 Urine Glucose (UA) NEGATIVE mg/dL (NEGATIVE) 01/05/20 16:05 Urine Ketones NEGATIVE mg/dL (NEGATIVE) 01/05/20 16:05 Urine Blood MODERATE (NEGATIVE) H 01/05/20 16:05 Urine Nitrite NEGATIVE (NEGATIVE) 01/05/20 16:05 Urine Nitrite (Reflex) NEGATIVE (NEGATIVE) 01/04/20 00:02 Urine Bilirubin NEGATIVE (NEGATIVE) 01/05/20 16:05 Urine Urobilinogen NEGATIVE mg/dL (<2.0) 01/05/20 16:05 Ur Leukocyte Esterase LARGE (NEGATIVE) H 01/05/20 16:05 Leukocyte Esterase Rfl NEGATIVE (NEGATIVE) 01/04/20 00:02 Urine WBC (Auto) 4 /HPF 01/05/20 16:05 Urine RBC (Auto) 4 /HPF 01/05/20 16:05 Urine Bacteria (Auto) TRACE /HPF 01/05/20 16:05 Urine WBC (Reflex) 1 /HPF 01/04/20 00:02 Squamous Epi Cells Auto 3 /HPF 01/05/20 16:05 Urine Mucus (Auto) RARE /LPF 01/05/20 16:05 Urine Ascorbic Acid NEGATIVE (NEGATIVE) 01/05/20 16:05 COVID-19 Source NASOPHARYNGEAL 01/04/20 03:50 COVID-19 (JAYCOB) NOT DETECTED 01/04/20 03:50 01/04/20 01/04/20 01/05/20 00:35 19:59 02:48 CK-MB (CK-2) 5.12 H 4.58 H Troponin I 0.047 0.058 0.055 NT-Pro-B Natriuret Pep 01/05/20 01/05/20 02:48 09:00 CK-MB (CK-2) 4.21 Troponin I 0.040 NT-Pro-B Natriuret Pep 28194 H Impressions: Chest X-Ray 01/03/20 22:29 IMPRESSION: No acute cardiopulmonary process copyright 2011 [employer]- All Rights Reserved Chest X-Ray 01/05/20 00:00 IMPRESSION: HEART ENLARGED WITHOUT FAILURE. NO OTHER SIGNIFICANT RADIOGRAPHIC FINDING IN THE CHEST. Plan Time Spent: Less than 30 Minutes Stroke Is this a Stroke Patient?: No Acute Heart Failure - Is this a Heart Failure Patient?: No
== END 2020-01-07 13:45 | disposition home or self-care (01) | DRG 603 ==
LOC: ER 18:11 → EH 01-04 03:40 → 3N 01-04 05:17
PROVIDERS: ADMIT Emergency Medicine; ATTEND Internal Medicine
DX: L03.116 Cellulitis of left lower limb (principal); N17.9 Acute kidney failure, unspecified; Z68.44 Body mass index [BMI] 60.0-69.9, adult; I48.0 Paroxysmal atrial fibrillation; E66.01 Morbid (severe) obesity due to excess calories; E78.5 Hyperlipidemia, unspecified; K21.9 Gastro-esophageal reflux disease without esophagitis; D63.1 Anemia in chronic kidney disease; N18.3 Chronic kidney disease, stage 3 (moderate); D72.825 Bandemia; I12.9 Hypertensive chronic kidney disease with stage 1 through stage 4 chronic kidney disease, or unspecified chronic kidney disease; Z88.8 Allergy status to other drugs, medicaments and biological substances; Z91.041 Radiographic dye allergy status; Z79.899 Other long term (current) drug therapy; Z11.59 Encounter for screening for other viral diseases; Z79.01 Long term (current) use of anticoagulants; Z83.3 Family history of diabetes mellitus; Z82.3 Family history of stroke
CPT/HCPCS: 36415; 71045; 80048; 80053; 81001; 82550; 82553; 82803; 83605; 83735; 83880; 84443; 84484; 85025; 85027; 87040; 87077; 87150; 87186; 87635; 93005; 93010; 96365; 96368; 99285; C9803; J0692; J0696; J1160; J1644; J1650; J1885; J1940; J2020; J2270; J3370; J3475; J3490; J7030